=== PATIENT | male | born 1980 | race American Indian/Alaskan Native ===

== ENCOUNTER 2018-01-05 22:50 | Emergency (ER) | payer OTHER ==
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
[2018-01-06] MEDS ORDERED: MOTRIN PO ONE (08:07)
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
[2018-01-06 09:23] VITALS: BP 122/72
== END 2018-01-06 09:23 | disposition home or self-care (01) ==
LOC: ED 22:50
DX: S16.1XXA Strain of muscle, fascia and tendon at neck level, initial encounter (principal); M54.5 Low back pain; R07.9 Chest pain, unspecified; Z87.891 Personal history of nicotine dependence; V89.2XXA Person injured in unspecified motor-vehicle accident, traffic, initial encounter; Y93.89 Activity, other specified; Y92.488 Other paved roadways as the place of occurrence of the external cause; Y99.8 Other external cause status
CPT/HCPCS: 72040; 72100; 99283